=== PATIENT | male | born 1985 | race Two or more races ===

== ENCOUNTER 2019-06-06 13:29 | Outpatient (CLI) | payer MEDICAID ==
--- NOTE | 2019-06-06 18:15 | Consultation ---
DATE OF CONSULTATION: 06/06/2019 CONSULTING PHYSICIAN: Juan Manuel Bray M.D. CHIEF COMPLAINT: Abdominal pain and bloating. PAST MEDICAL HISTORY: H. pylori positive, status post treatment about a month ago. PAST SURGICAL HISTORY: None. MEDICATIONS: Finasteride. FAMILY HISTORY: No family history of GI malignancies. SOCIAL HISTORY: The patient occasionally drinks alcohol. He used to be smoker, quit 6 months ago. ALLERGIES: No known drug allergies. REVIEW OF SYSTEMS: Positive for bloating, abdominal distention. PHYSICAL EXAMINATION: GENERAL: Well-developed male, in no acute distress. HEENT: Normocephalic, atraumatic. Sclerae anicteric. NECK: Supple. No evidence of obvious lymphadenopathy. CARDIOVASCULAR: Regular rate and rhythm. Plus S1-S2. LUNGS: Clear to auscultation bilaterally. ABDOMEN: Positive bowel sounds. Soft and nontender. No rebound. No guarding. No peritoneal sign. EXTREMITIES: No cyanosis, no clubbing, no edema. ASSESSMENT AND PLAN: This is a 34-year-old male with signs and symptoms highly suspicious for SIBO. The patient was given prescription for Augmentin 875 mg b.i.d. for 10 days followed by 1 tablet p.o. daily for two months and return to clinic if the above symptoms are persistent after treatment. Juan Manuel Bray M.D. DR: PIPO JOB#: [id number] CC:
[2019-06-07] MEDS ORDERED: PROSCAR5 MG ORAL (09:01)
== END 2019-06-06 15:29 | disposition home or self-care (01) ==
LOC: PAN 13:29
DX: R10.9 Unspecified abdominal pain (principal); R14.0 Abdominal distension (gaseous); Z79.899 Other long term (current) drug therapy
CPT/HCPCS: G0463